=== PATIENT | male | born 1950 | race Caucasian/White ===

== ENCOUNTER 2020-04-06 09:10 | Emergency (ER) | payer MEDICARE, SELFPAY ==
[2020-04-06 09:24] VITALS: BP 134/77; PULSE 68; RESP 16; TEMP 36.6; O2SAT 98
--- NOTE | 2020-04-06 09:41 | ED.SKABFB ---
HPI - Skin/Abscess/Foreign Bdy General Chief complaint: Skin/Abscess/Foreign Body Stated complaint: possible insect bite Time Seen by Provider: 04/06/20 09:30 Source: patient and RN notes reviewed Mode of arrival: ambulatory Limitations: no limitations History of Present Illness HPI narrative: She presents today with an insect bite to his right sabianist 2 days ago. Reports it occasionally itches, but swelling from the bite has spread below his right eye. He took about dose of Benadryl last night. Denies pain or vision changes. MD complaint: insect bite/sting Related Data Home Medications Medication Instructions Recorded Confirmed atorvastatin [Lipitor] 10 mg PO DAILY 04/06/20 04/06/20 pantoprazole [Protonix] 40 mg PO DAILY 04/06/20 04/06/20 vit C,S-Pk-bzrnj-lutein-zeaxan 1 tablet PO DAILY 04/06/20 04/06/20 [PreserVision AREDS-2] Allergies Allergy/AdvReac Type Severity Reaction Status Date / Time Sulfa (Sulfonamide Allergy Rash Verified 04/06/20 09:31 Antibiotics) Review of Systems Review of Systems: Narrative: CONSTITUTIONAL: Denies body aches, fever, chills, or sweats. EYES: Denies visual changes, redness, or discharge. ENT: Denies rhinorrhea, congestion, sore throat, or otalgia. CARDIOVASCULAR: Denies chest pain, palpitations, or edema. RESPIRATORY: Denies cough or dyspnea. GASTROINTESTINAL: Denies abdominal pain, nausea, vomiting, or diarrhea. GENITOURINARY: Denies dysuria or hematuria. SKIN: Denies rash, itching. + Insect bite to right sabianist, swelling below right eye MUSCULOSKELETAL: Denies back pain, joint pain, or myalgia. NEUROLOGIC: Denies headache, numbness, tingling, or weakness. PSYCH: Denies depression or anxiety. [facility] Past Medical History Medical History (Updated 04/06/20 @ 09:45 by Amalia Cardenas, MACHINE WHITENER, ) GERD (gastroesophageal reflux disease) Hypercholesterolemia Macular degeneration Social History Social History Gender identity (if verbalized by the patient): Male Comments At time of signature, I have reviewed and agree with nursing past medical, surgical, social and family history unless otherwise noted. Please see nursing chart for further information. There is no relevant family history pertinent to the presenting complaint Exam Narrative: Exam Narrative: GENERAL: Well-appearing, well-nourished, and in no acute distress. HEAD: Normocephalic, atraumatic. EYES: EOMI. PERRL. No redness or drainage. Conjunctivae normal. Moderate localized swelling to right lower eyelid area without erythema, ecchymosis, or induration. Nontender to palpation. Upper eyelid normal. Eyelashes normal. No drainage. Left eye normal ENT: Mucous membranes pink and moist. NECK: Normal AROM. Supple. No lymphadenopathy. CHEST: No respiratory distress. Clear to auscultation. HEART: Regular rate and rhythm. No murmur appreciated. Normal peripheral pulses. ABDOMEN: Soft, nontender, nondistended, normal active bowel sounds. MUSCULOSKELETAL: No bony tenderness. EXTREMITIES: Normal range of motion. No edema. SKIN: Warm, dry, no rash. Capillary refill normal. Normal skin turgor. Small insect bite to the right sabianist without surrounding erythema, induration, fluctuance. NEURO: No focal deficits. Alert and oriented x3. Gait steady. PSYCH: Normal affect. No signs of depression or anxiety. Course Vital Signs Vital signs: Vital Signs Temperature 97.8 F 04/06/20 09:24 Pulse Rate 68 04/06/20 09:24 Respiratory Rate 16 04/06/20 09:24 Blood Pressure 134/77 04/06/20 09:24 Pulse Oximetry 98 04/06/20 09:24 Temperature 97.8 F 04/06/20 09:24 Pulse Rate 68 04/06/20 09:24 Respiratory Rate 16 04/06/20 09:24 Blood Pressure 134/77 04/06/20 09:24 Pulse Oximetry 98 04/06/20 09:24 Reviewed. Pt has been instructed to follow up with his PCP regarding his elevated blood pressure today. MDM - Skin/Abscess/Foreign Bdy Differential Diagnosis Differential diagnosis: Likely
== END 2020-04-06 09:45 | disposition home or self-care (01) ==
PROVIDERS: Emergency Provider Nurse Practitioner
DX: S00.86XA Insect bite (nonvenomous) of other part of head, initial encounter (principal); K21.9 Gastro-esophageal reflux disease without esophagitis; E78.00 Pure hypercholesterolemia, unspecified; H35.30 Unspecified macular degeneration; R03.0 Elevated blood-pressure reading, without diagnosis of hypertension; W57.XXXA Bitten or stung by nonvenomous insect and other nonvenomous arthropods, initial encounter
CPT/HCPCS: 99213; G0463